=== PATIENT | female | born 1985 | race Caucasian/White ===

== ENCOUNTER 2021-01-26 17:18 | Emergency (ER) | payer SELFPAY ==
[2021-01-26] MEDS: Bupivacaine 0.5% 10 ML SDV INJECT ONE (17:38)
--- NOTE | 2021-01-26 17:41 | EDM.PDOC ---
ED HPI GENERAL MEDICAL PROBLEM - General Chief Complaint: ENT Problem Stated Complaint: BROKEN TOOTH, PAIN Time Seen by Provider: 01/26/21 17:29 Source of Information: Reports: Patient - History of Present Illness INITIAL COMMENTS - FREE TEXT/NARRATIVE: Amelia is a 35 y/o female who presents to the ER with complaints of breaking a tooth today while biting down on cheese and crackers. Can't get into the dentist until tomorrow. Oral/Mouth Pain Score (Numeric/FACES): 9 - Related Data Allergies Allergy/AdvReac Type Severity Reaction Status Date / Time No Known Allergies Allergy Verified 11/11/20 10:09 Home Meds: Home Meds Acetaminophen/Codeine [Tylenol with Codeine No.3 300MG/30MG] 2 tab PO Q4H PRN #10 tab 01/26/21 [Rx] Ipratropium/Albuterol Sulfate [Iprat-Albut 0.5-3(2.5) mg/3 ml] 3 ml IH QID PRN 01/26/21 [History] Review of Systems - Review of Systems Review Of Systems: See Below Constitutional: Reports: No Symptoms Eyes: Reports: No Symptoms Ears: Reports: No Symptoms Nose: Reports: No Symptoms Mouth/Throat: Reports: Pain (tooth) Respiratory: Reports: No Symptoms Cardiovascular: Reports: No Symptoms GI/Abdominal: Reports: No Symptoms Genitourinary: Reports: No Symptoms Musculoskeletal: Reports: No Symptoms Skin: Reports: No Symptoms Neurological: Reports: No Symptoms Psychiatric: Reports: No Symptoms ED EXAM, GENERAL - Physical Exam Exam: See Below General Appearance: Alert, WD/WN, No Apparent Distress (Adult female) Ears: Hearing Grossly Normal Nose: Normal Inspection Throat/Mouth: Normal Inspection, Normal Lips, Normal Oropharynx, Normal Voice, Other (Note broken left lower molar #18, some dental caries noted in various teeth) Course - Vital Signs Text/Narrative:: 1627 The patient was seen by the FISHERIES DIRECTOR. Dental block was done. PROCEDURE NOTE: DENTAL BLOCK Consent for operation or procedure: Risks and benefits discussed with patient and consent obtained. Risks include facial paralysis, hematoma, and trismus (spasm of the jaw muscle). Benefits include pain control. Bupivacine ).5%-2ml The distribution of the inferior alveolar nerve was identified. Lidocaine was injected into that region. A short time later adequate analgesia was obtained. Estimated Blood Loss: minimal Complications: The patient tolerated the procedure well without complications. She was given written discharge instructions and left the ER in stable condition. Last Recorded V/S: Last Vital Signs Temp 37.0 C 01/26/21 17:19 Pulse 94 01/26/21 17:19 Resp 20 01/26/21 17:19 BP 125/86 01/26/21 17:19 Pulse Ox 99 01/26/21 17:19 - Orders/Labs/Meds Meds: Medications Discontinued Medications Generic Name Dose Route Start Last Admin Trade Name Freq PRN Reason Stop Dose Admin Bupivacaine HCl 10 ml 01/26/21 17:32 01/26/21 17:38 Bupivacaine 0.5% 10 Ml Sdv INJECT 01/26/21 17:33 10 ml ONETIME ONE Administration Departure - Departure Time of Disposition: 17:41 Disposition: Home, Self-Care 01 Condition: Good Clinical Impression: Broken tooth Qualifiers: Encounter type: initial encounter Fracture type: closed Qualified Code(s): S02.5XXA - Fracture of tooth (traumatic), initial encounter for closed fracture - Discharge Information Prescriptions: Acetaminophen/Codeine [Tylenol with Codeine No.3 300MG/30MG] 2 tab PO Q4H PRN #10 tab PRN Reason: Pain Instructions: Tooth Injuries, [id number] Forms: ED Department Discharge Additional Instructions: -Viscous Lidocaine-Apply a small to the gumline around the tooth as needed for pain #100ml(Rx) -Ibuprofen 400mg-600 oral every 6 hours as needed for pain -APAP/Codeine 1-2 tablets oral every 4-6 hours # 10 (Sent from ER) -Use dental wax as needed to the broken tooth for comfort -Apply ice or heat to your cheek region for comfort -Eat soft foods that aren't extremely hot or cold -Get into the dental clinic for an evaluation IQRA -Return to the ER if you have any further concerns Sepsis Event Note (ED) - Evaluation Sepsis Screening Result: No Definite Risk - Focused Exam Vital Signs: Vital Signs Temp Pulse Resp BP Pulse Ox 01/26/21 17:19 37.0 C 94 20 125/86 99 - Problem List & Annotations (1) Broken tooth SNOMED Code(s): 42447347 Code(s): S02.5XXA - FRACTURE OF TOOTH (TRAUMATIC), INIT FOR CLOS FX Status: Acute Qualifiers: Encounter type: initial encounter Fracture type: closed Qualified Code(s): S02.5XXA - Fracture of tooth (traumatic), initial encounter for closed fracture - Problem List Review Problem List Initiated/Reviewed/Updated: Yes - Assessment/Plan Plan: See above
== END 2021-01-26 17:52 | disposition home or self-care (01) ==
LOC: LL.ED 17:18
DX: S02.5XXA Fracture of tooth (traumatic), initial encounter for closed fracture (principal); K02.9 Dental caries, unspecified; W22.8XXA Striking against or struck by other objects, initial encounter; Y93.G9 Activity, other involving cooking and grilling
CPT/HCPCS: 64400; 99282-25; 99283; J3490

== ENCOUNTER 2021-02-15 11:07 | Emergency (ER) | payer SELFPAY ==
--- NOTE | 2021-02-15 12:16 | EDM.PDOC ---
ED HPI GENERAL MEDICAL PROBLEM - General Chief Complaint: Respiratory Problem Stated Complaint: Cough Time Seen by Provider: 02/15/21 11:40 Source of Information: Reports: Patient History Limitations: Reports: No Limitations - History of Present Illness INITIAL COMMENTS - FREE TEXT/NARRATIVE: Patient presents to the ED for cough, sinus congestion with feeling ill. Patient has a long history of asthma, take albuterol and uses duoneb nebulizers. States she has been a little congested lately, thinking it was seasonal allergies with the change in the weather. yesterday she became very fatigued, slept alot, had a scratchy throat and felt ill. Using her medications. Her daughter has been ill with a respiratory illness the last month. Patient has not had antibiotics recently or steroids. but has been helped by these in the past. She was at work today and they asked her to get evaluated. She had her second Moderna COvid vaccination about a month ago. Not had covid 19. Works at [employer] with the [employer] Onset Date: 02/14/21 Duration: Getting Worse Associated Symptoms: Reports: Cough, Malaise Treatments CHIEF DIGITAL MEDIA OFFICER: Reports: Breathing Treatments - Related Data Allergies Allergy/AdvReac Type Severity Reaction Status Date / Time No Known Allergies Allergy Verified 11/11/20 10:09 Home Meds: Home Meds Acetaminophen/Codeine [Tylenol with Codeine No.3 300MG/30MG] 2 tab PO Q4H PRN #10 tab 01/26/21 [Rx] Ipratropium/Albuterol Sulfate [Iprat-Albut 0.5-3(2.5) mg/3 ml] 3 ml IH QID PRN 01/26/21 [History] Azithromycin 250 mg PO DAILY #3 tablet 02/15/21 [Rx] Past Medical History Respiratory History: Reports: Asthma Social & Family History - Caffeine Use Caffeine Use: Reports: Coffee ED ROS GENERAL - Review of Systems Review Of Systems: See Below Constitutional: Reports: Malaise, Weakness, Fatigue HEENT: Reports: Sinus Problem, Other (scratchy throat). Denies: Rhinitis Respiratory: Reports: Cough. Denies: Shortness of Breath, Wheezing, Pleuritic Chest Pain Cardiovascular: Denies: Chest Pain, Blood Pressure Problem, Dyspnea on Exertion GI/Abdominal: Reports: No Symptoms. Denies: Abdominal Pain, Diarrhea, Nausea, Vomiting : Reports: No Symptoms Musculoskeletal: Reports: No Symptoms Skin: Reports: No Symptoms Neurological: Reports: No Symptoms ED EXAM, GENERAL - Physical Exam Exam: See Below Exam Limited By: No Limitations General Appearance: Alert, WD/WN, No Apparent Distress Eye Exam: Bilateral Eye: EOMI, Normal Inspection, PERRL Nose: Normal Inspection, Normal Mucosa, No Blood Throat/Mouth: Normal Inspection, Normal Lips, Normal Teeth, Normal Voice Head: Atraumatic Neck: Normal Inspection, Supple, Non-Tender Respiratory/Chest: No Respiratory Distress, Decreased Breath Sounds (minimal bases) Cardiovascular: Normal Peripheral Pulses, Regular Rate, Rhythm, No Murmur GI/Abdominal: Normal Bowel Sounds, Soft, Non-Tender Back Exam: Normal Inspection Neurological: Alert, Oriented, CN II-XII Intact Course - Orders/Labs/Meds Labs: Laboratory Tests 02/15/21 Range/Units 11:31 SARS-CoV-2 RNA (TWAN) Negative (NEGATIVE) - Re-Assessments/Exams Free Text/Narrative Re-Assessment/Exam: 02/15/21 12:43 will check a covid as her work is requiring it. otherwise will treat as an asthma exacerbation with z pack and steroids. off work two days Departure - Departure Time of Disposition: 12:26 Disposition: Home, Self-Care 01 Clinical Impression: Upper respiratory infection - Discharge Information *PRESCRIPTION DRUG MONITORING PROGRAM REVIEWED*: Not Applicable *COPY OF PRESCRIPTION DRUG MONITORING REPORT IN PATIENT SHELLI: Not Applicable Prescriptions: Azithromycin 250 mg PO DAILY #3 tablet Instructions: Upper Respiratory Infection, Adult, [id number] Referrals: Hair Myrick PA-C [Primary Care Provider] - Forms: ED Department Discharge, ED Return to Work/School Form Additional Instructions: Take the azithromycin 2 tablets today and then one tablet daily until gone ( fill prescription for rest) . Take the steroids 40 mg daily ( 4 tablets) for 5 days. continue to use your albuterol inhaler and duoneb. follow up with PCP if not improving. you are given a work note for off for 2 days
== END 2021-02-15 13:03 | disposition home or self-care (01) ==
LOC: LL.ED 11:07
DX: J06.9 Acute upper respiratory infection, unspecified (principal); Z20.822 Contact with and (suspected) exposure to COVID-19
CPT/HCPCS: 99283; U0002

== ENCOUNTER 2021-02-23 02:29 | Emergency (ER) | payer SELFPAY ==
--- NOTE | 2021-02-23 03:00 | EDM.PDOC ---
ED HPI GENERAL MEDICAL PROBLEM - General Chief Complaint: ENT Problem Stated Complaint: R SIDED TOOTH PAIN Time Seen by Provider: 02/23/21 02:58 Source of Information: Reports: Patient History Limitations: Reports: No Limitations - History of Present Illness INITIAL COMMENTS - FREE TEXT/NARRATIVE: Left lower dental pain. Cracked a back molar earlier this month. Has appointment to see dentist tomorrow. Did have round of Amox earlier that helped pain. Pain is worsening again. She does not want any pain medication/dental block but felt that she might be getting infected again and that antibiotics might be needed. Is taking a bit more Tylenol than recommended dose per self report. Treatments MACHINE IRONER: Reports: Acetaminophen, Other (see below) Other Treatments MACHINE IRONER: approx 1 hr. ago 1500 mg. tylenol Right Lower Oral/Mouth Pain Score (Numeric/FACES): 9 - Related Data Allergies Allergy/AdvReac Type Severity Reaction Status Date / Time No Known Allergies Allergy Verified 02/23/21 02:40 Home Meds: Home Meds Ipratropium/Albuterol Sulfate [Iprat-Albut 0.5-3(2.5) mg/3 ml] 3 ml IH QID PRN 01/26/21 [History] Albuterol Sulfate [Albuterol Sulfate Hfa] 1 - 2 puff INH Q4H PRN 02/15/21 [History] Past Medical History Respiratory History: Reports: Asthma Social & Family History - Tobacco Use Tobacco Use Status *Q: Former Tobacco User Years of Tobacco use: 17 Packs/Tins Daily: 5 Used Tobacco, but Quit: No Second Hand Smoke Exposure: No - Caffeine Use Caffeine Use: Reports: Coffee ED ROS GENERAL - Review of Systems Review Of Systems: See Below Constitutional: Reports: No Symptoms. Denies: Fever HEENT: Reports: Dental Pain Respiratory: Reports: No Symptoms Cardiovascular: Reports: No Symptoms Endocrine: Reports: No Symptoms GI/Abdominal: Reports: No Symptoms : Reports: No Symptoms Musculoskeletal: Reports: No Symptoms Skin: Reports: No Symptoms Neurological: Reports: No Symptoms Psychiatric: Reports: No Symptoms Hematologic/Lymphatic: Reports: No Symptoms ED EXAM, GENERAL - Physical Exam Exam: See Below Exam Limited By: No Limitations General Appearance: Mild Distress Eye Exam: Bilateral Eye: EOMI, PERRL Ears: Normal External Exam, Normal Canal, Hearing Grossly Normal Nose: Normal Inspection Throat/Mouth: Normal Oropharynx, Normal Voice, No Airway Compromise, Other (No significant dental decay noted, has cracked posterior right lower molar. No obvious gum swelling/drainage. ) Head: Atraumatic, Normocephalic, Facial Swelling, Other (tenderness with palpation over right lower teeth/several teeth) Neck: Normal Inspection, Supple, Non-Tender, Full Range of Motion Respiratory/Chest: No Respiratory Distress Cardiovascular: Regular Rate, Rhythm Extremities: Normal Range of Motion, Normal Capillary Refill Neurological: Alert, Oriented, CN II-XII Intact, Normal Cognition, No Motor/Sensory Deficits Psychiatric: Normal Affect, Normal Mood Skin Exam: Warm, Dry, Intact, Normal Color Course - Vital Signs Last Recorded V/S: Last Vital Signs Temp 36.6 C 02/23/21 02:30 Pulse 78 02/23/21 02:30 Resp 16 02/23/21 02:30 BP 149/78 H 02/23/21 02:30 Pulse Ox 100 02/23/21 02:30 - Re-Assessments/Exams Free Text/Narrative Re-Assessment/Exam: 02/23/21 03:44 Will start patient on a week of Amox. She is to follow up with dentist as scheduled tomorrow. She declines prescription pain medication. She was cautioned to stick with recommended amounts of OTC pain meds as to much can lead to liver/kidney damage. Follow up otherwise as needed. Departure - Departure Time of Disposition: 02:58 Disposition: Home, Self-Care 01 Condition: Good Clinical Impression: Pain, dental - Discharge Information *PRESCRIPTION DRUG MONITORING PROGRAM REVIEWED*: Not Applicable *COPY OF PRESCRIPTION DRUG MONITORING REPORT IN PATIENT SHELLI: Not Applicable Instructions: Dental Pain Referrals: Hair Myrick PA-C [Primary Care Provider] - Forms: ED Department Discharge Additional Instructions: Follow up with dentist as planned tomorrow. Ice/Tylenol/Ibuprofen. STICK TO RECOMMENDED DOSES! Follow up otherwise as needed. Sepsis Event Note (ED) - Focused Exam Vital Signs: Vital Signs Temp Pulse Resp BP Pulse Ox 02/23/21 02:30 36.6 C 78 16 149/78 H 100
== END 2021-02-23 03:15 | disposition home or self-care (01) ==
LOC: LL.ED 02:29
DX: K08.89 Other specified disorders of teeth and supporting structures (principal); Z87.891 Personal history of nicotine dependence
CPT/HCPCS: 99282; 99283

== ENCOUNTER 2021-10-11 09:23 | Emergency (ER) | payer SELFPAY | END 2021-10-11 10:11 | disposition home or self-care (01) | LOC: LL.ED 09:23 | DX: N61.0 Mastitis without abscess (principal); Z98.890 Other specified postprocedural states | CPT/HCPCS: 99283 ==

== ENCOUNTER 2021-12-31 11:23 | Emergency (ER) | payer SELFPAY ==
[2021-12-31] MEDS ORDERED: cefTRIAXone 1 GM Vial IM ONE (12:27)
[2021-12-31] MEDS ORDERED: Lidocaine 1% 5 ML VIAL INJECT ONE (12:28)
== END 2021-12-31 12:45 | disposition home or self-care (01) ==
LOC: LL.ED 11:23
DX: N61.0 Mastitis without abscess (principal); F17.210 Nicotine dependence, cigarettes, uncomplicated
CPT/HCPCS: 96372; 99282; 99283; J0696

== ENCOUNTER 2022-09-28 10:19 | Emergency (ER) | payer BC ==
[2022-09-28] MEDS ORDERED: Sodium Chloride 0.9% 10 ML Syringe FLUSH PRN (10:37)
[2022-09-28 10:54] LABS: BASOPHILS ABSOLUTE AUTO 0.02 K/uL (0.00-0.20); BASOPHILS PERCENT AUTO 0.2 % (0.0-2.0); EOSINOPHILS ABSOLUTE AUTO 0.28 K/uL (0.00-0.50); EOSINOPHILS PERCENT AUTO 3.1 % (0.0-5.0); HEMATOCRIT 41.3 % (34.0-46.0); HEMOGLOBIN 13.6 g/dL (11.7-15.5); LYMPHOCYTES ABSOLUTE AUTO 2.59 K/uL (0.50-3.50); LYMPHOCYTES PERCENT AUTO 28.3 % (10.0-50.0); MEAN CORPUSCULAR HEMOGLOBIN 32.1 pg (28.2-33.3); MEAN CORPUSCULAR HGB CONC 32.9 g/dL (31.7-36.0); MEAN CORPUSCULAR VOLUME 97.4 fL (84.0-98.0); MONOCYTES ABSOLUTE AUTO 0.55 K/uL (0.00-1.00); NEUTROPHILS ABSOLUTE AUTO 5.71 K/uL (1.40-7.00); NEUTROPHILS PERCENT AUTO 62.4 % (45.0-80.0); PLATELET COUNT,PLT 170 K/uL (150-350); RED BLOOD CELL COUNT 4.24 M/uL (3.77-5.09); RED CELL DISTRIBUTION WIDTH 13.9 % (11.2-14.1); WHITE BLOOD CELL COUNT,WBC 9.2 K/uL (4.0-10.2)
[2022-09-28 11:18] LABS: APPEARANCE,URINE TURBID; BILIRUBIN,URINE NEGATIVE (NEGATIVE); COLOR,URINE YELLOW; GLUCOSE,URINE NEGATIVE (NEGATIVE); KETONES,URINE NEGATIVE (NEGATIVE); LEUKOCYTE ESTERASE,URINE NEGATIVE (NEGATIVE); NITRITE,URINE NEGATIVE (NEGATIVE); OCCULT BLOOD,URINE NEGATIVE (NEGATIVE); PH,URINE 8.5 (5.0-9.0); PROTEIN,URINE 30 mg/dL (NEGATIVE); UROBILINOGEN,URINE 0.2 E.U./dL (0.2-1.0)
[2022-09-28] MEDS: Sodium Chloride 0.9% 1,000 ML IV ONE (11:22)
[2022-09-28 11:26] LABS: AMORPHOUS SEDIMENT,URINE MANY /HPF (0/HPF); BACTERIA,URINE RARE /HPF (NONE TO FEW); EPITHELIAL CELLS,URINE FEW /LPF; RBC,URINE 0-5 /HPF; WBC,URINE 0-5 /HPF
[2022-09-28] MEDS: Iopamidol 612 MG/ML 100 ML Bottle IVPUSH ONE (11:44)
== END 2022-09-28 13:25 | disposition home or self-care (01) ==
LOC: LL.ED 10:19
DX: K52.9 Noninfective gastroenteritis and colitis, unspecified (principal); J45.909 Unspecified asthma, uncomplicated; Z79.899 Other long term (current) drug therapy
CPT/HCPCS: 36415; 74177; 81001; 81025; 83605; 83690; 85025; 96360; 99284-25; J7030; Q9967

== ENCOUNTER 2023-08-02 07:54 | Emergency (ER) | payer BC ==
[2023-08-02] MEDS ORDERED: Sodium Chloride 0.9% 10 ML Syringe FLUSH PRN (08:16)
[2023-08-02 08:31] LABS: BASOPHILS ABSOLUTE AUTO 0.06 K/uL (0.00-0.20); BASOPHILS PERCENT AUTO 0.4 % (0.0-2.0); EOSINOPHILS ABSOLUTE AUTO 0.06 K/uL (0.00-0.50); EOSINOPHILS PERCENT AUTO 0.4 % (0.0-5.0); HEMATOCRIT 39.5 % (34.0-46.0); HEMOGLOBIN 13.2 g/dL (11.7-15.5); LYMPHOCYTES ABSOLUTE AUTO 2.77 K/uL (0.50-3.50); LYMPHOCYTES PERCENT AUTO 16.8 % (10.0-50.0); MEAN CORPUSCULAR HGB CONC 33.4 g/dL (31.7-36.0); MEAN CORPUSCULAR VOLUME 95.6 fL (84.0-98.0); MONOCYTES ABSOLUTE AUTO 0.68 K/uL (0.00-1.00); MONOCYTES PERCENT AUTO 4.1 % (2.0-14.0); NEUTROPHILS ABSOLUTE AUTO 12.92 K/uL (1.40-7.00); NEUTROPHILS PERCENT AUTO 78.3 % (45.0-80.0); PLATELET COUNT,PLT 337 K/uL (150-350); RED BLOOD CELL COUNT 4.13 M/uL (3.77-5.09); RED CELL DISTRIBUTION WIDTH 13.3 % (11.2-14.1); WHITE BLOOD CELL COUNT,WBC 16.5 K/uL (4.0-10.2)
[2023-08-02] MEDS: Sodium Chloride 0.9% 1,000 ML IV ONE (08:35)
[2023-08-02 08:55] LABS: APPEARANCE,URINE CLEAR; BILIRUBIN,URINE NEGATIVE (NEGATIVE); COLOR,URINE YELLOW; GLUCOSE,URINE NEGATIVE (NEGATIVE); KETONES,URINE NEGATIVE (NEGATIVE); LEUKOCYTE ESTERASE,URINE NEGATIVE (NEGATIVE); NITRITE,URINE NEGATIVE (NEGATIVE); OCCULT BLOOD,URINE NEGATIVE (NEGATIVE); PROTEIN,URINE NEGATIVE (NEGATIVE); UROBILINOGEN,URINE 0.2 E.U./dL (0.2-1.0)
[2023-08-02 08:56] LABS: ALBUMIN 3.3 g/dL (3.4-5.0); ANION GAP 9.5 meq/L (7-15); BILIRUBIN TOTAL 0.2 mg/dL (0.2-1.0); CALCIUM 8.5 mg/dL (8.5-10.1); CARBON DIOXIDE,CO2 28.5 mmol/L (21.0-32.0); CREATININE 0.81 mg/dL (0.51-1.17); EST CRCL DRUG DOSING (CG) 83.08 mL/min; MAGNESIUM 1.8 mg/dL (1.8-2.4); POTASSIUM,K 3.7 mmol/L (3.5-5.1); PROTEIN TOTAL,TP 6.3 g/dL (6.4-8.2)
[2023-08-02 10:01] LABS: CORONAVIRUS COVID-19 NAA NEGATIVE (NEGATIVE); INFLUENZA A NAA NEGATIVE (NEGATIVE); INFLUENZA B NAA NEGATIVE (NEGATIVE); RESPIRATORY SYNCYTIAL VIR NAA NEGATIVE (NEGATIVE)
[2023-08-02] MEDS ORDERED: Sodium Chloride 0.9% 1,000 ML IV SCH (10:30)
[2023-08-02] MEDS: Albuterol/Ipratropium 3.0-0.5 MG/3 ML Neb Soln NEB ONE (10:46)
[2023-08-02] MEDS: Benzonatate 100 MG Cap PO SCH (10:46)
[2023-08-02] MEDS: methylPREDNISolone Sodium Succinate 125 MG/2 ML SDV IVPUSH SCH (10:46)
[2023-08-02] MEDS ORDERED: Albuterol 6.7 GM Inhaler INH PRN (12:23)
[2023-08-02] MEDS: Nicotine 21 MG/24 Hr Patch TRDERM SCH (12:30)
[2023-08-02] MEDS: FLUTICASONE INH SCH (12:31)
[2023-08-02] MEDS: SALMETEROL INH SCH (12:31)
[2023-08-03] MEDS ORDERED: Remove Patch NICOTINE PATCH TRDERM SCH (08:00)
== END 2023-08-02 14:57 | disposition home or self-care (01) ==
LOC: SUPCPDRO 07:54 → LL.ED 07:54 → LL.MS 09:45 → UNDOADMIN 09:45 → LL.ED 14:57
DX: R55 Syncope and collapse (principal); E86.0 Dehydration; J44.9 Chronic obstructive pulmonary disease, unspecified; F17.200 Nicotine dependence, unspecified, uncomplicated; Z79.899 Other long term (current) drug therapy; Z91.048 Other nonmedicinal substance allergy status
CPT/HCPCS: 0241U; 36415; 71046; 80053; 81003; 83605; 83735; 83880; 84484; 85025; 85379; 93005; 93010; 96361; 96374; 99284; 99285-25; A9270-GY; J2930; J7030; J7620-GY

== ENCOUNTER 2025-01-30 10:04 | Emergency (ER) | payer BC ==
[2025-01-30] MEDS ORDERED: Sodium Chloride 0.9% 10 ML Syringe FLUSH PRN (10:07)
[2025-01-30] MEDS ORDERED: Naloxone 0.4 MG/ML SDV IVPUSH PRN (10:08)
[2025-01-30] MEDS: Ondansetron 4 MG/2 ML SDV IVPUSH ONE (10:20)
[2025-01-30 10:26] LABS: BASOPHILS ABSOLUTE AUTO 0.03 K/uL (0.00-0.20); BASOPHILS PERCENT AUTO 0.3 % (0.0-2.0); EOSINOPHILS ABSOLUTE AUTO 0.11 K/uL (0.00-0.50); EOSINOPHILS PERCENT AUTO 1.2 % (0.0-5.0); IMMATURE GRAN ABSOLUTE AUTO 0.01 10^3/uL (0.00-0.04); IMMATURE GRAN PERCENT AUTO 0.1 % (0.0-0.4); LYMPHOCYTES ABSOLUTE AUTO 2.17 K/uL (0.50-3.50); LYMPHOCYTES PERCENT AUTO 23.7 % (10.0-50.0); MONOCYTES ABSOLUTE AUTO 0.56 K/uL (0.00-1.00); MONOCYTES PERCENT AUTO 6.1 % (2.0-14.0); NEUTROPHILS ABSOLUTE AUTO 6.26 K/uL (1.40-7.00); NEUTROPHILS PERCENT AUTO 68.6 % (45.0-80.0); PLATELET COUNT,PLT 174 K/uL (150-350); RED BLOOD CELL COUNT 3.66 M/uL (3.77-5.09); RED CELL DISTRIBUTION WIDTH 13.5 % (11.2-14.1); WHITE BLOOD CELL COUNT,WBC 9.1 K/uL (4.0-10.2)
[2025-01-30 10:51] LABS: ALANINE AMINOTRANSFERASE,ALT 48 U/L (12-78); ASPARTATE AMNIOTRANSFERASE,AST 21 U/L (15-37); BILIRUBIN TOTAL 0.5 mg/dL (0.2-1.0); BLOOD UREA NITROGEN,BUN 12 mg/dL (7-18); CARBON DIOXIDE,CO2 26.1 mmol/L (21.0-32.0); CHLORIDE,CL 108 mmol/L (98-107); CREATININE 0.90 mg/dL (0.51-1.17); ESTIMATED GFR 82 mL/min (>=60); GLUCOSE RANDOM 112 mg/dL (70-99); POTASSIUM,K 3.9 mmol/L (3.5-5.1); PROTEIN TOTAL,TP 6.7 g/dL (6.4-8.2); SODIUM,NA 143 mmol/L (136-145)
[2025-01-30 10:56] LABS: LACTIC ACID 1.0 mmol/L (0.4-2.0)
[2025-01-30 11:07] LABS: APPEARANCE,URINE CLEAR; GLUCOSE,URINE NEGATIVE (NEGATIVE); OCCULT BLOOD,URINE NEGATIVE (NEGATIVE)
== END 2025-01-30 12:06 | disposition home or self-care (01) ==
LOC: LL.ED 10:04
DX: R10.21 Pelvic and perineal pain right side (principal); R10.22 Pelvic and perineal pain left side; N93.9 Abnormal uterine and vaginal bleeding, unspecified; J45.909 Unspecified asthma, uncomplicated; K21.9 Gastro-esophageal reflux disease without esophagitis; Z79.899 Other long term (current) drug therapy; Z91.048 Other nonmedicinal substance allergy status
CPT/HCPCS: 36415; 76856; 80053; 81003; 81025; 83605; 85025; 93976; 96374; 96375; 99284-25; J1171; J2405

== ENCOUNTER 2025-02-05 07:02 | Emergency (ER) | payer BC ==
[2025-02-05] MEDS: Sodium Chloride 0.9% 10 ML Syringe FLUSH PRN (07:25)
[2025-02-05] MEDS: Ketorolac 15 MG/ML SDV IVPUSH ONE (07:29)
[2025-02-05] MEDS: Ondansetron 4 MG/2 ML SDV IVPUSH ONE (07:30)
[2025-02-05 07:37] LABS: BASOPHILS ABSOLUTE AUTO 0.05 K/uL (0.00-0.20); BASOPHILS PERCENT AUTO 0.7 % (0.0-2.0); EOSINOPHILS ABSOLUTE AUTO 0.33 K/uL (0.00-0.50); EOSINOPHILS PERCENT AUTO 4.8 % (0.0-5.0); IMMATURE GRAN ABSOLUTE AUTO 0.02 10^3/uL (0.00-0.04); IMMATURE GRAN PERCENT AUTO 0.3 % (0.0-0.4); LYMPHOCYTES ABSOLUTE AUTO 1.55 K/uL (0.50-3.50); LYMPHOCYTES PERCENT AUTO 22.7 % (10.0-50.0); MONOCYTES ABSOLUTE AUTO 0.66 K/uL (0.00-1.00); MONOCYTES PERCENT AUTO 9.6 % (2.0-14.0); NEUTROPHILS ABSOLUTE AUTO 4.23 K/uL (1.40-7.00); NEUTROPHILS PERCENT AUTO 61.9 % (45.0-80.0); PLATELET COUNT,PLT 209 K/uL (150-350); RED BLOOD CELL COUNT 4.37 M/uL (3.77-5.09); RED CELL DISTRIBUTION WIDTH 13.5 % (11.2-14.1); WHITE BLOOD CELL COUNT,WBC 6.8 K/uL (4.0-10.2)
[2025-02-05] MEDS: Iopamidol 612 MG/ML 100 ML Bottle IVPUSH ONE (07:50)
[2025-02-05 07:54] LABS: APPEARANCE,URINE CLEAR; GLUCOSE,URINE NEGATIVE (NEGATIVE); OCCULT BLOOD,URINE MODERATE (NEGATIVE)
[2025-02-05 07:58] LABS: LACTIC ACID 0.8 mmol/L (0.4-2.0)
[2025-02-05 08:03] LABS: ALANINE AMINOTRANSFERASE,ALT 32 U/L (12-78); ASPARTATE AMNIOTRANSFERASE,AST 16 U/L (15-37); BILIRUBIN TOTAL 0.9 mg/dL (0.2-1.0); BLOOD UREA NITROGEN,BUN 13 mg/dL (7-18); CARBON DIOXIDE,CO2 27.4 mmol/L (21.0-32.0); CHLORIDE,CL 106 mmol/L (98-107); CREATININE 0.93 mg/dL (0.51-1.17); GLUCOSE RANDOM 100 mg/dL (70-99); POTASSIUM,K 4.2 mmol/L (3.5-5.1); PROTEIN TOTAL,TP 7.1 g/dL (6.4-8.2); SODIUM,NA 141 mmol/L (136-145); TSH ULTRASENSITIVE 2.364 mIU/mL (0.358-3.740)
[2025-02-05 08:06] LABS: ESTIMATED GFR 79 mL/min (>=60)
[2025-02-05 08:33] LABS: INR 1.0 (0.9-1.1); PTT,PARTIAL THROMBOPLSTIN TIME 24.1 SEC (23.8-34.4)
== END 2025-02-05 07:50 | disposition home or self-care (01) ==
LOC: LL.ED 07:02
DX: N93.8 Other specified abnormal uterine and vaginal bleeding (principal); Q52.4 Other congenital malformations of vagina; J45.909 Unspecified asthma, uncomplicated; Z91.048 Other nonmedicinal substance allergy status; Z79.899 Other long term (current) drug therapy
CPT/HCPCS: 36415; 74177; 80053; 81001; 81025; 83605; 83735; 84443; 85025; 85610; 85730; 86140; 96374; 96375; 99284; J1885; J2270; J2405; Q9967